=== PATIENT | female | born 1930 | race Caucasian/White ===

== ENCOUNTER 2017-11-02 22:50 | Inpatient (IN) ==
[2017-11-02] MEDS ORDERED: ONDANSETRON 4 MG/2 ML VIAL ONE (22:52)
[2017-11-02] MEDS ORDERED: DILTIAZEM 50 MG/10 ML VIAL IV ONE ×2 (22:52)
[2017-11-02] MEDS ORDERED: DILTIAZEM 50 MG/10 ML VIAL IV STA (22:59)
[2017-11-02] MEDS ORDERED: METOPROLOL TARTRATE 25 MG TABLET PO STA (22:59)
[2017-11-02] MEDS ORDERED: ONDANSETRON 4 MG/2 ML VIAL IV STA (22:59)
[2017-11-02 23:34] LABS: Basophils # 0.1 10*3/uL (0.0-0.2); Basophils % 0.4 % (0.0-0.8); Hematocrit 41.5 VOL% (35.7-47.0); Hemoglobin 13.4 GM/DL (12.0-16.0); Immature Granulocytes % 1.5 %; Immature Granulocytes Absolute 0.39 #; Lymphocytes # 0.9 10*3/uL (1.4-4.0); Lymphocytes % 3.3 % (21.3-54.2); Mean Corpuscular HGB Conc 32.3 GM/DL (32-36); Mean Corpuscular Hemoglobin 27 PG (27-34); Mean Corpuscular Volume 83.7 FL (87-102); Mean Platelet Volume 11.7 FL (9.6-12.0); Monocytes # 1.5 10*3/uL (0.11-0.8); Monocytes % 5.9 % (1.7-12.7); Neutrophils # 22.8 10*3/uL (1.4-7.4); Neutrophils % 88.9 % (38.7-73.9); Platelet Count 211 T/CUMM (130-400); Red Blood Count 4.96 MC/CUMM (3.8-5.5); Red Cell Distribution Width 13.5 % (9.3-17.3); White Blood Count 25.6 T/CUMM (4-12)
[2017-11-02] MEDS ORDERED: LEVOFLOXACIN INJ 750 MG in PREMIX 1 EACH IV STA (23:39)
[2017-11-02 23:43] LABS: INR 1.4; PT Patient Result 14.7 SECS; Partial Thromboplastin Time 36.8 SECS (0-40)
[2017-11-02] MEDS ORDERED: LEVOFLOXACIN INJ 150 ML IV ONE (23:46)
[2017-11-02 23:47] LABS: Apearance,Urine CLOUDY (Clear); Bacteria,Urine Many /HPF (Few); Barbiturates Screen,Urine Negative (Negative); Benzodiazepines Screen,Urine Negative (Negative); Bilirubin,Urine Negative (Negative); Blood, Urine Moderate mg/dL (Negative); Cannabinoid Screen,Urine Negative (Negative); Glucose,Urine (UA) Negative (Negative); Hyaline Casts,Urine 150 /LPF (0-3); Ketones,Urine Negative (Negative); Mucus,Urine Moderate /LPF (Occasional); Nitrite,Urine Negative (Negative); Opiate Screen,Urine Negative (Negative); Phencyclidine Screen,Urine Negative (Negative); Protein,Urine 100 MG/DL; Squamous Epithelial Cell,Urine Occasional /HPF (0-10); Urine Color Yellow (Yellow); Urine Specific Gravity 1.013 (1.001-1.035); WBC,Urine 1651 /HPF (0-6)
[2017-11-02] MEDS ORDERED: METOPROLOL TARTRATE 25 MG TABLET ONE (23:47)
[2017-11-02 23:53] LABS: Lactic Acid 4.2 MMOL/L (0.4-2.0)
[2017-11-02 23:56] LABS: Platelet Estimate Normal
[2017-11-02] MEDS ORDERED: SODIUM CHLORIDE 0.9% 1,000 ML IV STA (23:59)
[2017-11-03 00:01] LABS: Alanine Aminotransferase 17 U/L (13-56); Albumin 3.1 G/DL (3.4-5.0); Alkaline Phosphatase 92 U/L (45-117); Aspartate Amino Transferase 23 U/L (0-37); Blood Urea Nitrogen 33 MG/DL (7-18); Calcium 8.1 MG/DL (8.5-10.1); Free T4 (Free Thyroxine) 1.41 NG/DL (0.76-1.46); Glucose 207 MG/DL (74-106); Osmolality,Calculated 276.5 MOS/KG (273-304); Sodium 132 MMOL/L (136-145)
[2017-11-03] MEDS ORDERED: ACETAMINOPHEN 500 MG TABLET PO STA (00:04)
[2017-11-03] MEDS ORDERED: ACETAMINOPHEN 500 MG TABLET ONE (00:05)
[2017-11-03 00:08] LABS: Potassium 2.5 MMOL/L (3.5-5.1); Troponin I Only 0.358 NG/ML (0.00-0.045)
[2017-11-03] MEDS ORDERED: SODIUM CHLORIDE 0.9% 1,000 ML IV STA (01:30)
[2017-11-03] MEDS ORDERED: DEXTROSE 50% 25 GM/50 ML VIAL IV PRN ×2 (01:48)
[2017-11-03] MEDS ORDERED: ONDANSETRON 4 MG/2 ML VIAL IV PRN (01:48)
[2017-11-03] MEDS ORDERED: SODIUM CHLORIDE 0.9% 500 ML IV ONE (01:48)
[2017-11-03] MEDS ORDERED: ACETAMINOPHEN 325 MG TABLET PO PRN (01:48)
[2017-11-03] MEDS ORDERED: GLUCAGON 1 MG VIAL IM PRN ×2 (01:48)
[2017-11-03] MEDS ORDERED: SODIUM CHLORIDE 0.9% 100 ML IV ONE (02:33)
[2017-11-03] MEDS ORDERED: POTASSIUM CHLORIDE RIDER 100 ML IV ONE ×2 (02:33→06:37)
[2017-11-03] MEDS ORDERED: PIPERACILLIN/TAZOBACTAM 3,375 MG VIAL IV ONE ×2 (02:33→11:20)
[2017-11-03] MEDS: POTASSIUM CHLORIDE RIDER 10 MEQ in PREMIX 1 EACH IV SCH ×3 (02:40→14:51)
[2017-11-03] MEDS: SODIUM CHLORIDE 0.9% 1,000 ML IV SCH ×4 (02:40→22:39)
[2017-11-03] MEDS: PIPERACILLIN/TAZOBACTAM 3,375 MG in SODIUM CHLORIDE 0.9% 100 ML IV SCH ×3 (02:40→17:40)
[2017-11-03] MEDS ORDERED: POTASSIUM CHLORIDE RIDER 200 ML IV ONE (04:22)
[2017-11-03 07:33] LABS: Basophils # 0.1 10*3/uL (0.0-0.2); Basophils % 0.2 % (0.0-0.8); Hematocrit 34.1 VOL% (35.7-47.0); Immature Granulocytes % 1.7 %; Immature Granulocytes Absolute 0.36 #; Lymphocytes # 0.7 10*3/uL (1.4-4.0); Lymphocytes % 3.3 % (21.3-54.2); Mean Corpuscular HGB Conc 32.8 GM/DL (32-36); Mean Corpuscular Hemoglobin 28 PG (27-34); Mean Corpuscular Volume 83.6 FL (87-102); Mean Platelet Volume 12.2 FL (9.6-12.0); Monocytes # 1.2 10*3/uL (0.11-0.8); Monocytes % 5.9 % (1.7-12.7); Neutrophils # 18.6 10*3/uL (1.4-7.4); Neutrophils % 88.9 % (38.7-73.9); Red Blood Count 4.08 MC/CUMM (3.8-5.5); Red Cell Distribution Width 13.6 % (9.3-17.3)
[2017-11-03 07:34] LABS: Hemoglobin 11.2 GM/DL (12.0-16.0); Platelet Count 156 T/CUMM (130-400)
[2017-11-03 07:44] LABS: Band Neutrophils 1 % (0-10); Hypochromasia 1+; Lymphocytes 3 % (20-55); Platelet Estimate Adequate; Segmented Neutrophils 90 % (50-85); Total Cells Counted 100
[2017-11-03] MEDS: INSULIN REGULAR 100 UNIT/ML SUBCUT SCH ×4 (08:08→21:18)
[2017-11-03 08:12] LABS: Albumin 2.5 G/DL (3.4-5.0); Bilirubin,Total 1.7 MG/DL (0.2-1.0); Calcium 6.8 MG/DL (8.5-10.1); Potassium 3.1 MMOL/L (3.5-5.1); Total Protein 5.5 G/DL (6.4-8.3)
[2017-11-03] MEDS ORDERED: INSULIN REGULAR 100 UNIT/ML ONE (08:13)
[2017-11-03] MEDS ORDERED: PANTOPRAZOLE 40 MG VIAL IV ONE (08:53)
[2017-11-03] MEDS ORDERED: ENOXAPARIN 30 MG/0.3 ML SYRINGE ONE (08:53)
[2017-11-03] MEDS: PANTOPRAZOLE 40 MG VIAL IV SCH (08:56)
[2017-11-03] MEDS: ENOXAPARIN 30 MG/0.3 ML SYRINGE SUBCUT SCH (08:57)
[2017-11-03] MEDS ORDERED: POTASSIUM CHLORIDE 20 MEQ TABLET PO ONE ×2 (09:17→11:20)
[2017-11-03 11:01] LABS: INR 1.5; PT Patient Result 15.9 SECS
[2017-11-03] MEDS ORDERED: ZINC OXIDE PASTE 113 GM TUBE TOP PRN (15:00)
[2017-11-03 15:42] LABS: CKMB % 1.4 %
[2017-11-03 15:44] LABS: Troponin I Only 0.435 NG/ML (0.00-0.045)
[2017-11-03] MEDS: ASPIRIN CHEW 81 MG TABLET PO SCH (16:49)
[2017-11-03] MEDS ORDERED: POTASSIUM CHLORIDE RIDER 10 MEQ in PREMIX 1 EACH IV PRN ×2 (19:39→21:57)
[2017-11-03] MEDS ORDERED: PROMETHAZINE 25 MG/1 ML VIAL IM PRN (19:41)
[2017-11-03] MEDS ORDERED: METOCLOPRAMIDE 10 MG/2 ML VIAL IV ONE (20:00)
[2017-11-03] MEDS ORDERED: METOPROLOL TARTRATE 25 MG TABLET PO SCH (21:00)
[2017-11-03] MEDS: METOPROLOL SUCCINATE XL 25 MG TABLET PO SCH (21:17)
[2017-11-03] MEDS ORDERED: SODIUM CHLOR 0.9% KCL 40 MEQ 40 MEQ/1,000 ML BAG IV SCH (22:30)
[2017-11-04] MEDS: PIPERACILLIN/TAZOBACTAM 3,375 MG in SODIUM CHLORIDE 0.9% 100 ML IV SCH ×3 (02:25→17:37)
[2017-11-04 05:27] LABS: INR 1.2; PT Patient Result 12.2 SECS
[2017-11-04 05:31] LABS: Basophils % 0.2 % (0.0-0.8); Hematocrit 32.8 VOL% (35.7-47.0); Hemoglobin 10.6 GM/DL (12.0-16.0); Immature Granulocytes % 0.7 %; Immature Granulocytes Absolute 0.09 #; Lymphocytes # 0.3 10*3/uL (1.4-4.0); Lymphocytes % 2.3 % (21.3-54.2); Mean Corpuscular HGB Conc 32.3 GM/DL (32-36); Mean Corpuscular Hemoglobin 27 PG (27-34); Mean Corpuscular Volume 84.1 FL (87-102); Mean Platelet Volume 12.6 FL (9.6-12.0); Monocytes # 0.7 10*3/uL (0.11-0.8); Monocytes % 5.1 % (1.7-12.7); Neutrophils # 12.5 10*3/uL (1.4-7.4); Neutrophils % 91.7 % (38.7-73.9); Platelet Count 145 T/CUMM (130-400); Red Cell Distribution Width 13.6 % (9.3-17.3); White Blood Count 13.7 T/CUMM (4-12)
[2017-11-04 05:58] LABS: Osmolality,Calculated 290.4 MOS/KG (273-304)
[2017-11-04 06:04] LABS: Troponin I Only 0.404 NG/ML (0.00-0.045)
[2017-11-04 06:19] LABS: Burr Cells 2+; Hypochromasia Slight; Lymphocytes 3 % (20-55); Platelet Estimate Adequate; Segmented Neutrophils 92 % (50-85); Total Cells Counted 100
[2017-11-04] MEDS: METOPROLOL SUCCINATE XL 25 MG TABLET PO SCH ×2 (08:54→21:03)
[2017-11-04] MEDS: ASPIRIN CHEW 81 MG TABLET PO SCH (08:54)
[2017-11-04] MEDS: PANTOPRAZOLE 40 MG VIAL IV SCH (08:57)
[2017-11-04] MEDS: ENOXAPARIN 30 MG/0.3 ML SYRINGE SUBCUT SCH (08:58)
[2017-11-04] MEDS: SODIUM CHLORIDE 0.9% 1,000 ML IV SCH ×3 (08:58→22:36)
[2017-11-04] MEDS: INSULIN REGULAR 100 UNIT/ML SUBCUT SCH ×4 (08:58→21:03)
[2017-11-04] MEDS: ALBUTEROL 2.5 MG/3 ML NEB RESP TX PRN ×2 (15:08→21:23)
[2017-11-04] MEDS: POTASSIUM CHLORIDE 20 MEQ TABLET PO PRN (15:45)
[2017-11-04] MEDS: POTASSIUM CHLORIDE 20 MEQ TABLET PO SCH (15:45)
[2017-11-05] MEDS: PIPERACILLIN/TAZOBACTAM 3,375 MG in SODIUM CHLORIDE 0.9% 100 ML IV SCH ×3 (03:40→22:00)
[2017-11-05 05:19] LABS: Basophils % 0.1 % (0.0-0.8); Hematocrit 34.8 VOL% (35.7-47.0); Hemoglobin 11.5 GM/DL (12.0-16.0); Immature Granulocytes % 0.9 %; Immature Granulocytes Absolute 0.14 #; Lymphocytes # 0.7 10*3/uL (1.4-4.0); Lymphocytes % 4.5 % (21.3-54.2); Mean Corpuscular Hemoglobin 27 PG (27-34); Mean Corpuscular Volume 82.5 FL (87-102); Mean Platelet Volume 12.8 FL (9.6-12.0); Monocytes # 0.9 10*3/uL (0.11-0.8); Monocytes % 6.2 % (1.7-12.7); Neutrophils # 13.5 10*3/uL (1.4-7.4); Neutrophils % 88.3 % (38.7-73.9); Platelet Count 190 T/CUMM (130-400); Red Blood Count 4.22 MC/CUMM (3.8-5.5); Red Cell Distribution Width 13.6 % (9.3-17.3); White Blood Count 15.3 T/CUMM (4-12)
[2017-11-05 05:53] LABS: Calcium 7.7 MG/DL (8.5-10.1); Magnesium 1.5 MG/DL (1.8-2.4); Osmolality,Calculated 297.8 MOS/KG (273-304); Potassium 3.9 MMOL/L (3.5-5.1)
[2017-11-05 07:04] LABS: Band Neutrophils 1 % (0-10); Lymphocytes 6 % (20-55); Platelet Estimate Normal; Segmented Neutrophils 88 % (50-85); Total Cells Counted 100
[2017-11-05] MEDS: ASPIRIN CHEW 81 MG TABLET PO SCH (09:37)
[2017-11-05] MEDS: INSULIN REGULAR 100 UNIT/ML SUBCUT SCH ×4 (09:37→20:45)
[2017-11-05] MEDS: ENOXAPARIN 30 MG/0.3 ML SYRINGE SUBCUT SCH (09:37)
[2017-11-05] MEDS: PANTOPRAZOLE 40 MG VIAL IV SCH (09:37)
[2017-11-05] MEDS: POTASSIUM CHLORIDE 20 MEQ TABLET PO SCH (09:37)
[2017-11-05] MEDS: METOPROLOL SUCCINATE XL 25 MG TABLET PO SCH (09:37)
[2017-11-05] MEDS: SODIUM CHLORIDE 0.9% 1,000 ML IV SCH (09:47)
[2017-11-05] MEDS ORDERED: METOPROLOL SUCCINATE XL 25 MG TABLET PO ONE (10:43)
[2017-11-05] MEDS ORDERED: FUROSEMIDE 40 MG/4 ML VIAL IV SCH (11:00)
[2017-11-05] MEDS: ALBUTEROL 2.5 MG/3 ML NEB RESP TX PRN ×2 (14:14→19:44)
[2017-11-05] MEDS: VANCOMYCIN INJ 1,250 MG in SODIUM CHLORIDE 0.9% 250 ML IV SCH (19:01)
[2017-11-05] MEDS: METOPROLOL SUCCINATE XL 50 MG TABLET PO SCH (20:50)
[2017-11-05] MEDS: MELATONIN 3 MG TABLET PO SCH (21:19)
[2017-11-06 04:57] LABS: Basophils % 0.3 % (0.0-0.8); Eosinophils % 0.1 % (0.00-10.9); Hematocrit 32.1 VOL% (35.7-47.0); Hemoglobin 10.1 GM/DL (12.0-16.0); Immature Granulocytes % 0.5 %; Immature Granulocytes Absolute 0.05 #; Lymphocytes # 0.9 10*3/uL (1.4-4.0); Lymphocytes % 8.8 % (21.3-54.2); Mean Corpuscular HGB Conc 31.5 GM/DL (32-36); Mean Corpuscular Hemoglobin 27 PG (27-34); Mean Corpuscular Volume 85.4 FL (87-102); Monocytes # 0.9 10*3/uL (0.11-0.8); Neutrophils % 81.3 % (38.7-73.9); Platelet Count 158 T/CUMM (130-400); Red Blood Count 3.76 MC/CUMM (3.8-5.5); Red Cell Distribution Width 13.9 % (9.3-17.3); White Blood Count 9.9 T/CUMM (4-12)
[2017-11-06] MEDS: PIPERACILLIN/TAZOBACTAM 3,375 MG in SODIUM CHLORIDE 0.9% 100 ML IV SCH ×3 (05:09→23:20)
[2017-11-06 05:27] LABS: Calcium 7.9 MG/DL (8.5-10.1); Magnesium 1.6 MG/DL (1.8-2.4); Potassium 3.7 MMOL/L (3.5-5.1)
[2017-11-06] MEDS: ENOXAPARIN 30 MG/0.3 ML SYRINGE SUBCUT SCH (09:08)
[2017-11-06] MEDS: PANTOPRAZOLE 40 MG VIAL IV SCH (09:09)
[2017-11-06] MEDS: INSULIN REGULAR 100 UNIT/ML SUBCUT SCH ×4 (09:09→20:36)
[2017-11-06] MEDS: FUROSEMIDE 40 MG/4 ML VIAL IV SCH ×2 (09:09→17:10)
[2017-11-06] MEDS: POTASSIUM CHLORIDE 20 MEQ TABLET PO SCH (09:09)
[2017-11-06] MEDS: METOPROLOL SUCCINATE XL 50 MG TABLET PO SCH ×2 (09:10→20:37)
[2017-11-06] MEDS: ASPIRIN CHEW 81 MG TABLET PO SCH (09:10)
[2017-11-06] MEDS: amLODIPine 2.5 MG TABLET PO SCH (12:00)
[2017-11-06] MEDS: VANCOMYCIN INJ 1,250 MG in SODIUM CHLORIDE 0.9% 250 ML IV SCH (18:22)
[2017-11-06] MEDS: MELATONIN 3 MG TABLET PO SCH (20:37)
[2017-11-06] MEDS: APIXABAN 2.5 MG TABLET PO SCH (20:37)
[2017-11-06] MEDS: MAGNESIUM SULF RIDER 2 GM in PREMIX 1 EACH IV PRN (21:04)
[2017-11-07] MEDS: PIPERACILLIN/TAZOBACTAM 3,375 MG in SODIUM CHLORIDE 0.9% 100 ML IV SCH ×3 (05:40→23:34)
[2017-11-07 06:37] LABS: Basophils # 0.1 10*3/uL (0.0-0.2); Basophils % 0.5 % (0.0-0.8); Eosinophils # 0.1 10*3/uL (0.0-0.87); Hemoglobin 11.1 GM/DL (12.0-16.0); Lymphocytes # 1.2 10*3/uL (1.4-4.0); Lymphocytes % 12.4 % (21.3-54.2); Mean Corpuscular HGB Conc 31.7 GM/DL (32-36); Mean Corpuscular Hemoglobin 27 PG (27-34); Mean Corpuscular Volume 84.7 FL (87-102); Mean Platelet Volume 12.4 FL (9.6-12.0); Monocytes # 0.9 10*3/uL (0.11-0.8); Monocytes % 9.8 % (1.7-12.7); Neutrophils # 7.2 10*3/uL (1.4-7.4); Neutrophils % 75.3 % (38.7-73.9); Platelet Count 191 T/CUMM (130-400); Red Blood Count 4.13 MC/CUMM (3.8-5.5); Red Cell Distribution Width 13.7 % (9.3-17.3); White Blood Count 9.6 T/CUMM (4-12)
[2017-11-07 07:02] LABS: Calcium 8.2 MG/DL (8.5-10.1); Magnesium 1.8 MG/DL (1.8-2.4); Osmolality,Calculated 287.3 MOS/KG (273-304); Potassium 3.3 MMOL/L (3.5-5.1)
[2017-11-07 08:18] LABS: Eosinophils 1 % (0-10); Hypochromasia 1+; Lymphocytes 19 % (20-55); Segmented Neutrophils 75 % (50-85); Total Cells Counted 100
[2017-11-07 08:20] LABS: Microcytosis Slight
[2017-11-07 08:21] LABS: Platelet Estimate Adequate
[2017-11-07] MEDS: POTASSIUM CHLORIDE 20 MEQ TABLET PO SCH (09:57)
[2017-11-07] MEDS: FUROSEMIDE 40 MG TABLET PO SCH (09:58)
[2017-11-07] MEDS: amLODIPine 2.5 MG TABLET PO SCH (09:58)
[2017-11-07] MEDS: ASPIRIN CHEW 81 MG TABLET PO SCH (09:58)
[2017-11-07] MEDS: METOPROLOL SUCCINATE XL 50 MG TABLET PO SCH ×2 (09:58→22:00)
[2017-11-07] MEDS: APIXABAN 2.5 MG TABLET PO SCH ×2 (09:58→22:00)
[2017-11-07] MEDS: INSULIN REGULAR 100 UNIT/ML SUBCUT SCH ×4 (09:59→22:26)
[2017-11-07] MEDS: POTASSIUM CHLORIDE 20 MEQ TABLET PO PRN (10:01)
[2017-11-07] MEDS: PANTOPRAZOLE 40 MG VIAL IV SCH (10:12)
[2017-11-07] MEDS: MELATONIN 3 MG TABLET PO SCH (22:00)
[2017-11-08] MEDS: PIPERACILLIN/TAZOBACTAM 3,375 MG in SODIUM CHLORIDE 0.9% 100 ML IV SCH (05:55)
[2017-11-08 07:22] LABS: Basophils # 0.1 10*3/uL (0.0-0.2); Basophils % 0.6 % (0.0-0.8); Eosinophils # 0.2 10*3/uL (0.0-0.87); Eosinophils % 1.6 % (0.00-10.9); Hematocrit 36.6 VOL% (35.7-47.0); Hemoglobin 11.8 GM/DL (12.0-16.0); Immature Granulocytes % 0.8 %; Immature Granulocytes Absolute 0.11 #; Lymphocytes # 1.9 10*3/uL (1.4-4.0); Mean Corpuscular HGB Conc 32.2 GM/DL (32-36); Mean Corpuscular Hemoglobin 27 PG (27-34); Mean Corpuscular Volume 83.4 FL (87-102); Mean Platelet Volume 11.7 FL (9.6-12.0); Monocytes % 7.8 % (1.7-12.7); Neutrophils % 75.2 % (38.7-73.9); Platelet Count 254 T/CUMM (130-400); Red Blood Count 4.39 MC/CUMM (3.8-5.5); Red Cell Distribution Width 13.2 % (9.3-17.3); White Blood Count 13.3 T/CUMM (4-12)
[2017-11-08 07:50] LABS: Calcium 7.9 MG/DL (8.5-10.1); Magnesium 1.4 MG/DL (1.8-2.4)
[2017-11-08 07:51] LABS: Osmolality,Calculated 286.3 MOS/KG (273-304); Potassium 3.2 MMOL/L (3.5-5.1)
[2017-11-08] MEDS: PANTOPRAZOLE 40 MG VIAL IV SCH (09:23)
[2017-11-08] MEDS: FUROSEMIDE 40 MG TABLET PO SCH (09:24)
[2017-11-08] MEDS: APIXABAN 2.5 MG TABLET PO SCH ×2 (09:24→21:26)
[2017-11-08] MEDS: METOPROLOL SUCCINATE XL 50 MG TABLET PO SCH ×2 (09:25→21:26)
[2017-11-08] MEDS: ASPIRIN CHEW 81 MG TABLET PO SCH (09:25)
[2017-11-08] MEDS: INSULIN REGULAR 100 UNIT/ML SUBCUT SCH ×4 (09:25→21:26)
[2017-11-08] MEDS: amLODIPine 5 MG TABLET PO SCH (09:25)
[2017-11-08] MEDS: POTASSIUM CHLORIDE 20 MEQ TABLET PO SCH (09:30)
[2017-11-08] MEDS: POTASSIUM CHLORIDE 20 MEQ/15 ML UDCUP PER TUBE PRN ×4 (11:22→17:35)
[2017-11-08] MEDS: LEVOFLOXACIN 750 MG TABLET PO SCH (11:22)
[2017-11-08] MEDS: MAGNESIUM SULF RIDER 2 GM in PREMIX 1 EACH IV PRN ×2 (11:22→13:38)
[2017-11-08] MEDS: MELATONIN 3 MG TABLET PO SCH (21:26)
[2017-11-09 02:38] LABS: Basophils # 0.1 10*3/uL (0.0-0.2); Basophils % 0.4 % (0.0-0.8); Eosinophils # 0.2 10*3/uL (0.0-0.87); Eosinophils % 1.3 % (0.00-10.9); Hematocrit 35.7 VOL% (35.7-47.0); Immature Granulocytes % 1.2 %; Immature Granulocytes Absolute 0.16 #; Lymphocytes # 1.8 10*3/uL (1.4-4.0); Lymphocytes % 13.6 % (21.3-54.2); Mean Corpuscular HGB Conc 30.8 GM/DL (32-36); Mean Corpuscular Hemoglobin 26 PG (27-34); Mean Corpuscular Volume 84.8 FL (87-102); Mean Platelet Volume 11.8 FL (9.6-12.0); Monocytes % 7.3 % (1.7-12.7); Neutrophils # 9.9 10*3/uL (1.4-7.4); Neutrophils % 76.2 % (38.7-73.9); Platelet Count 259 T/CUMM (130-400); Red Blood Count 4.21 MC/CUMM (3.8-5.5); Red Cell Distribution Width 13.1 % (9.3-17.3)
[2017-11-09 03:04] LABS: Calcium 7.7 MG/DL (8.5-10.1); Magnesium 1.7 MG/DL (1.8-2.4); Osmolality,Calculated 283.5 MOS/KG (273-304)
[2017-11-09 07:29] VITALS: BP 136/61
[2017-11-09] MEDS: METOPROLOL SUCCINATE XL 50 MG TABLET PO SCH (08:45)
[2017-11-09] MEDS: POTASSIUM CHLORIDE 20 MEQ TABLET PO SCH (08:46)
[2017-11-09] MEDS: ASPIRIN CHEW 81 MG TABLET PO SCH (08:46)
[2017-11-09] MEDS: LEVOFLOXACIN 750 MG TABLET PO SCH (08:46)
[2017-11-09] MEDS: amLODIPine 5 MG TABLET PO SCH (08:46)
[2017-11-09] MEDS: PANTOPRAZOLE 40 MG VIAL IV SCH (08:46)
[2017-11-09] MEDS: FUROSEMIDE 40 MG TABLET PO SCH (08:46)
[2017-11-09] MEDS: APIXABAN 2.5 MG TABLET PO SCH (08:46)
[2017-11-09] MEDS: INSULIN REGULAR 100 UNIT/ML SUBCUT SCH (08:57)
[2017-11-09] MEDS ORDERED: MAGNESIUM CHLORIDE 64 MG TABLET PO SCH (09:30)
== END 2017-11-09 11:56 | disposition home or self-care (01) | DRG 871 ==
LOC: N.ED 22:50 → SUATTDRO 11-03 01:48 → N.EDINP 11-03 01:48 → N.5E 11-03 13:20
PROVIDERS: ADMIT Internal Medicine; ATTEND Internal Medicine